=== PATIENT | male | born 1995 | race African-American/Black ===

== ENCOUNTER 2019-02-09 22:32 | Emergency (ER) | payer SELFPAY ==
[~2019-02-09] VITALS: Ht 190.5 cm; Wt 99.8 kg
[2019-02-09 22:37] VITALS: BP 137/94
[2019-02-09] MEDS ORDERED: NKM (22:37)
--- NOTE | 2019-02-09 22:38 | NUR ---
ED Nurse Note: Patient walked in to ED due to hemorrhoids that he first noticed last 02/07/19, states that he felt something was ripped and states that he has not seen any bleeding. No stated medical history. Alert and oriented. Breathing even and unlabored. No SOB. Afebrile. VSS. S/O at bedside.
[2019-02-09] MEDS ORDERED: ANUSOL-HC25 MG RECTAL (23:02)
--- NOTE | 2019-02-09 23:03 | Emergency Room Report ---
History of Present Illness General Chief Complaint: Skin Rash/Abscess Source: Patient Present Illness HPI This is a 23-year-old male with no past medical history. He presents with chief complaint of hemorrhoid. Onset 3 days ago after a large bowel movement. He felt a lump there. Not painful. No bleeding. No fever chills but no nausea no vomiting. Never had this problem before. Allergies: Coded Allergies: No Known Allergies (Unverified , 02/09/19) Patient History Past Medical History: see triage record, old chart reviewed Past Surgical History: none Pertinent Family History: none Social History: Denies: smoking Immunizations: other Reviewed Nursing Documentation: PMH: Agreed; PSxH: Agreed Nursing Documentation-PMH Past Medical History: No Stated History Review of Systems Eye: Denies: eye pain, blurred vision ENT: Denies: ear pain, nose congestion, throat swelling Respiratory: Denies: cough, shortness of breath Cardiovascular: Denies: chest pain, palpitations Gastrointestinal: Denies: abdominal pain, diarrhea, nausea, vomiting Musculoskeletal: Denies: back pain, joint pain Skin: Denies: rash Neurological: Denies: headache, numbness Endocrine: Denies: increased thirst, increased urine Hematologic/Lymphatic: Denies: easy bruising All Other Systems: negative except mentioned in HPI Physical Exam Vital Signs Date Time Temp Pulse Resp B/P (MAP) Pulse Ox O2 Delivery O2 Flow Rate FiO2 02/09/19 22:34 99.0 98 18 137/94 (108) 95 Room Air Vitals normal Sp02 EP Interpretation: reviewed, normal General Appearance: well appearing, no apparent distress, alert Head: normocephalic, atraumatic Eyes: bilateral eye PERRL, bilateral eye EOMI ENT: hearing grossly normal, normal pharynx Neck: full range of motion, supple, no meningismus Respiratory: chest non-tender, lungs clear, normal breath sounds Cardiovascular #1: regular rate, rhythm, no murmur Gastrointestinal: normal bowel sounds, non tender, no mass, no organomegaly, no bruit, non-distended Rectal: other - Small 1 cm hemorrhoid at the 3 o'clock position. Not thrombosed. No abscess. Musculoskeletal: back normal, gait/station normal, normal range of motion Psychiatric: mood/affect normal Medical Decision Making Diagnostic Impression: Primary Impression: Hemorrhoid Qualified Codes: K64.9 - Unspecified hemorrhoids ER Course Patient with a small external hemorrhoid. No evidence of bleeding or thrombosis. No evidence of any infection or abscess. Will discharge home Last Vital Signs Date Time Temp Pulse Resp B/P (MAP) Pulse Ox O2 Delivery O2 Flow Rate FiO2 02/09/19 22:37 99.0 78 18 137/94 95 Room Air Status: unchanged Disposition: HOME, SELF-CARE Condition: Stable Scripts Hydrocortisone Acetate* (ANUSOL-HC*) 25 Mg Supp.rect 1 SUPP RECTAL TWICE A DAY, #7 SUPP Prov: Luca Sampson MD 02/09/19 Additional Instructions: Follow-up with your doctor in 7 days. Increase fibers consumption. Return if symptoms worsen. Luca Sampson MD Feb 09, 2019 23:03
[2019-02-09 23:09] VITALS: BP 137/94
--- NOTE | 2019-02-09 23:09 | NUR ---
ED Nurse Note: Pt cleared by ERMD for discharge. DC instructions/prescription was given and explained to pt and verbalized understanding of teachings. All medical deviecs such as ID band removed. Pt is AAO x4, ambulatory and left with all personal belongings. Accompanied by S/O.
== END 2019-02-09 23:09 | disposition home or self-care (01) ==
LOC: EMR 22:45
DX: K64.9 Unspecified hemorrhoids (principal)
CPT/HCPCS: 99282

== ENCOUNTER 2019-04-03 12:01 | Emergency (ER) | payer SELFPAY ==
[~2019-04-03] VITALS: Ht 190.5 cm; Wt 99.8 kg
[~2019-04-03 12:01] MED LIST: ANUSOL-HC25 MG RECTAL; NKM
--- NOTE | 2019-04-03 12:25 | NUR ---
ED Nurse Note: Patient arrived by car from home complaining of possible hemorrhoids. He states that he was diagnosed with hemorrhoids months ago, but he stated he had much more pain than he does now. He felt pain with bowel movements the past 2 days, and noticed blood when he wiped last night. Bed in lowest position, patient in no acute distress.
[2019-04-03 12:40] VITALS: BP 144/71
[2019-04-03 13:25] LABS: APPEARANCE,URINE CLEAR; BILIRUBIN, URINE NEGATIVE (NEGATIVE); GLUCOSE, URINE (UA) NEGATIVE (NEGATIVE); KETONES,URINE NEGATIVE (NEGATIVE); LEUKOCYTE ESTERASE ,URINE NEGATIVE (NEGATIVE); NITRITE,URINE NEGATIVE (NEGATIVE); PH,URINE 7 (4.5-8.0); PROTEIN,URINE NEGATIVE (NEGATIVE); UROBILINOGEN,URINE 1 MG/DL (0.0-1.0)
[2019-04-03 13:34] LABS: COLOR,URINE YELLOW
--- NOTE | 2019-04-03 13:37 | Emergency Room Report ---
History of Present Illness General Chief Complaint: General Complaint Source: Patient Present Illness HPI 23-year-old male presents to the emergency department complaining of 6-7 out of 10 in severity rectal pain x4 days. Patient reports today he had right red blood per rectum on the toilet paper where he had wipes 3 times before sufficiently clearing the blood. Patient states that his pain improved slightly however he is concerned due to the bleeding. Patient reports history of hemorrhoids in January of this year. Patient reports he was previously prescribed suppositories for which he is requesting avoidance of. Patient denies fevers or chills he reports some constipation prior to onset of his symptoms. Denies abdominal pain or tenderness. No other aggravating or relieving factors. He denies anal trauma/ intercourse or FB insertion. Allergies: Coded Allergies: No Known Allergies (Unverified , 02/09/19) Patient History Past Medical History: see triage record Past Surgical History: none Pertinent Family History: none Reviewed Nursing Documentation: PMH: Agreed; PSxH: Agreed Nursing Documentation-PMH Past Medical History: No Stated History Review of Systems All Other Systems: negative except mentioned in HPI Physical Exam Vital Signs Date Time Temp Pulse Resp B/P (MAP) Pulse Ox O2 Delivery O2 Flow Rate FiO2 04/03/19 12:19 97.9 81 19 144/71 (95) 100 Room Air Sp02 EP Interpretation: reviewed, normal General Appearance: no apparent distress, alert, GCS 15, non-toxic Head: normocephalic, atraumatic Eyes: bilateral eye normal inspection, bilateral eye PERRL ENT: hearing grossly normal, normal voice Neck: full range of motion Respiratory: lungs clear, normal breath sounds, speaking full sentences Cardiovascular #1: regular rate, rhythm Gastrointestinal: normal bowel sounds, non tender, soft, non-distended, no guarding Rectal: hemorrhoids - in the 5 o clock position externally, suspicion of spontaneously draining perianal abscess due to the mild fluctuance on palpation. light pink purulent drainage expresses. NO evidence of thrombus, some BRB- scant. Genitourinary: normal inspection, no CVA tenderness Musculoskeletal: gait/station normal, normal range of motion, non-tender Neurologic: alert, oriented x3, responsive, motor strength/tone normal, sensory intact, speech normal, grossly normal Psychiatric: judgement/insight normal Lymphatic: no adenopathy Medical Decision Making PA Attestation Dr. Lebron is my supervising Physician whom patient management has been discussed with. Diagnostic Impression: Primary Impression: Bleeding hemorrhoid ER Course 23-year-old male presents to the emergency department complaining of 6-7 out of 10 in severity rectal pain x4 days. Patient reports today he had right red blood per rectum on the toilet paper where he had wipes 3 times before sufficiently clearing the blood. Patient states that his pain improved slightly however he is concerned due to the bleeding. Patient reports history of hemorrhoids in January of this year. Patient reports he was previously prescribed suppositories for which he is requesting avoidance of. Patient denies fevers or chills he reports some constipation prior to onset of his symptoms. Denies abdominal pain or tenderness. No other aggravating or relieving factors. He denies anal trauma/ intercourse or FB insertion. Ddx considered but are not limited to constipation , anal fissure, perianal abscess, rectal wall tear, thrombosed hemorrhoid, hemorrhoid. Vital signs: are WNL, pt. is afebrile H&PE are most consistent with hemorrhoid , secondary to straining/ constipation. bowl sounds are normo active. suspicion of spontaneously draining perianal abscess due to the mild fluctuance on palpation. light pink purulent drainage expresses. Pt. is non-toxic in appearance, and NAD. ORDERS: None required at this time ED INTERVENTIONS: - Discussed the patient's self care interventions for hemorrhoids. Also d/w pt. signs and symptoms of perianal abscess, as well as ED return precautions. DISCHARGE: At this time pt. is stable for d/c to home. Will provide printed patient care instructions, and any necessary prescriptions. Care plan and follow up instructions have been discussed with the patient prior to discharge. Labs Test 04/03/19 12:30 Urine Color Yellow Urine Appearance Clear Urine pH 7 (4.5-8.0) Urine Specific [place] 1.010 (1.005-1.035) Urine Protein Negative (NEGATIVE) Urine Glucose (UA) Negative (NEGATIVE) Urine Ketones Negative (NEGATIVE) Urine Blood Negative (NEGATIVE) Urine Nitrite Negative (NEGATIVE) Urine Bilirubin Negative (NEGATIVE) Urine Urobilinogen 1 MG/DL (0.0-1.0) Urine Leukocyte Esterase Negative (NEGATIVE) Urine RBC 0-2 /HPF (0 - 0) Urine WBC 0-2 /HPF (0 - 0) Urine Squamous Epithelial Cells Occasional /LPF Urine Bacteria Occasional /HPF (NONE) Urine Mucus Few /LPF (NONE/OCC) Last Vital Signs Date Time Temp Pulse Resp B/P (MAP) Pulse Ox O2 Delivery O2 Flow Rate FiO2 04/03/19 12:19 97.9 81 19 144/71 (95) 100 Room Air Disposition: HOME, SELF-CARE Condition: Stable Scripts Trimethoprim/Sulfamethoxazole 160/800* (BACTRIM DS TABLET*) 1 Each Tablet 1 TAB ORAL TWICE A DAY for 7 Days, #14 TAB Prov: Camila Osman 04/03/19 Metronidazole* (FLAGYL*) 500 Mg Tablet 500 MG ORAL THREE TIMES A DAY for 7 Days, #21 TAB 0 Refills Prov: Camila Osman 04/03/19 Lidocaine HCL 2% Jelly* (Lidocaine Jelly 2%*) 5 Ml Jel.pf.ryan 1 APPLIC RC DAILY, #5 ML Prov: Camila Osman 04/03/19 Hydrocortisone Hc 2.5% Cream (ANUSOL-HC 2.5% CREAM) Y Cr 1 GM RC TID, #30 GM Prov: Camila Osman 04/03/19 Docusate Sodium* (COLACE*) 100 Mg Capsule 100 MG ORAL THREE TIMES A DAY, #30 CAP Prov: Camila Osman 04/03/19 Referrals: NOT CHOSEN IPA/MD,REFERRING (PCP) Departure Forms: Return to Work Return to Work Date: Apr 06, 2019 Work Restrictions: No Heavy Lifting Other Restrictions: light duty, work in position of comfort, limited sitting. Return to Full Activity: Apr 06, 2019 Patient Instructions: Hemorrhoids, [id number], Perianal Abscess Additional Instructions: Take medications as directed. ! Do not drink alcohol while taking Flagyl/Metronidazole as this will cause a skin reaction. Follow up with a Primary Care Provider in 3-5 days, even if your symptoms have resolved. --Please review list of primary care clinics, if you do not already have a primary care provider Return sooner to ED if new symptoms occur, or current symptoms become worse. - Please note that this Emergency Department Report was dictated using [employer] burner technology software, occasionally this can lead to erroneous entry secondary to interpretation by the dictation equipment. Camila Osman Apr 03, 2019 13:37
[2019-04-03] MEDS ORDERED: ANUSOL-HC30 GM RC (13:41)
[2019-04-03] MEDS ORDERED: BACTRIM DS TAB1 EAC1 ORAL (13:41)
[2019-04-03] MEDS ORDERED: LD2JL30 RC (13:41)
[2019-04-03] MEDS ORDERED: COLACE100 MG ORAL (13:41)
[2019-04-03] MEDS ORDERED: METRONIDAZOLE500 MG ORAL (13:41)
[2019-04-03 13:50] VITALS: BP 128/81
== END 2019-04-03 13:50 | disposition home or self-care (01) ==
LOC: EMR 12:42
DX: K64.9 Unspecified hemorrhoids (principal)
CPT/HCPCS: 81001; 99282